=== PATIENT | male | born 1995 | race Caucasian/White ===

== ENCOUNTER 2023-05-29 18:05 | Emergency (ER) | payer BC ==
[~2023-05-29] VITALS: Ht 177.8 cm; Wt 77.0 kg
[2023-05-29 18:12] VITALS: O2SAT 97
[2023-05-29] MEDS ORDERED: NAPR-679 MT (18:54)
[2023-05-29 19:02] VITALS: BP 115/86; PULSE 92; RESP 16; TEMP 98.2
== END 2023-05-29 20:16 | disposition home or self-care (01) ==
LOC: ER 18:05
DX: S63.615A Unspecified sprain of left ring finger, initial encounter (principal); X58.XXXA Exposure to other specified factors, initial encounter; Y93.89 Activity, other specified; Y92.89 Other specified places as the place of occurrence of the external cause; Y99.8 Other external cause status
CPT/HCPCS: 73140; 99283